=== PATIENT | male | born 1950 | race Caucasian/White ===

== ENCOUNTER 2016-11-21 15:00 | Outpatient (RCR) | payer OTHER | END 2016-12-18 | disposition home or self-care (01) | LOC: PTY 15:00 | DX: M67.921 Unspecified disorder of synovium and tendon, right upper arm (principal); M22.42 Chondromalacia patellae, left knee; M51.37 Other intervertebral disc degeneration, lumbosacral region; M17.9 Osteoarthritis of knee, unspecified; M25.819 Other specified joint disorders, unspecified shoulder; Z91.011 Allergy to milk products ==

== ENCOUNTER 2017-11-29 13:30 | Outpatient (RCR) | payer OTHER | END 2017-12-18 | disposition home or self-care (01) | LOC: PTY 13:30 | PROVIDERS: ATTEND Internal Medicine | DX: M54.2 Cervicalgia (principal); M25.512 Pain in left shoulder ==